=== PATIENT | female | born 1995 | race Caucasian/White ===

== ENCOUNTER 2018-08-26 20:17 | Day surgery (SDC) | payer SELFPAY ==
[2018-08-26 21:28] VITALS: BP 124/90; TEMP 98.9
[2018-08-26 21:29] LABS: Amnisure Test No Membranes Rupture (No Rupture)
[2018-08-26 21:30] LABS: Amnisure Internal Control QC ACCEPTABLE (ACCEPTABLE)
[2018-08-26 21:36] VITALS: BMI 22.1
--- NOTE | 2018-08-26 21:55 | PDOC.EVN ---
Event Note - Event Note Event Note: Faculty Note H&P Brief triage note Triage Time: 2200 Patient is a 22 yo at 39 weeks 2 days, having care in [place]. She states "leaking for weeks" but her MD has not "done any tests". Here for irregular CTX. She was here visiting the area for graduation. SSE: no evidence LOF. Thick yellow dsch PV. sent VP3 sent Will order sono for largest fluid pocket. Patient seen and agree with Dr Jay olvera.
[2018-08-26 22:17] LABS: Clarity Hazy (Clear)
[2018-08-26 22:18] LABS: Bilirubin Negative (Negative); Glucose, Urine (Dipstick) 100 mg/dL (Negative); Leukocyte Negative (Negative); Nitrite Negative (Negative); Protein, Urine (Dipstick) 30 mg/dL (Neg-Trace); Specific Gravity, Urine 1.025 (1.005-1.030); Urobilinogen 0.2 mg/dL (0.2-1.0); pH, Urine 6.5 (5.0-9.0)
[2018-08-26 22:19] LABS: Blood, Urine Moderate (Negative)
[2018-08-26 22:23] LABS: Bacteria/HPF Rare-Few HPF (None Seen); Hyaline Casts/LPF 0-3 HYALINE CAST LPF (0-3 Hyaline); Squamous Epithelial 0-3 HPF (0-3); WBC/HPF 0-3 HPF (0-3)
--- NOTE | 2018-08-26 22:25 | PDOC.FPROB ---
[facility]MR OB H&P: HPI - History of Present Illness Chief Complaint: Leaking Fluid History of Present Illness: 22 yo @ 39.2 weeks by LMP c/w U/S performed in April w/ c/c of leaking fluid for 3 weeks. Pt reports having leaking fluid. She states she is in premature labor. States having abdominal pain and pelvic pain. Reports pressure. Reports back pain and not being able to move her legs at times. Pt deneis any fever or chills. Pt denies any nausea or vomiting. Pt reports FM. Denies vaginal bleeding. Denies any urinary sx's. Pt reports being tx for UTI 3 weeks ago. Pt states she has been to her OB a few times for this same problem and he didn't do any testing. Primary Care Physician: JEYSON [facility] OB H&P: Current - Care : 2 Para: 1 Gestational age: 39.2 Due date: 08/31/2018 Dating Criteria: LMP - OB Labs Blood type: unknown RH: unknown Antibody Screen: unknown HIV: unknown RPR: unknown HepBsAg: unknown Quad screen: unknown Urine drug screen: not done Gonorrhea: unknown Chlamydia: unknown GBS: unknown [facility]MR OB H&P: History - Past Medical History PMH: None - OB History OB History: No significant OB history - TURPENTINE DISTILLER History TURPENTINE DISTILLER History: Denies - Surgical History Sx History: Eye surgery when a kid, [place] - Social History Social History: Denies alcohol use, tobacco use, or illicit drug use - Family History Family History: FH positive for DM, every type of cancer, and heart disease on her dads side FMR OB H&P: Medications - Current Home Medications: Medication Instructions Recorded Confirmed Type Clotrimazole [Clotrimazole-7] 1 appful VAG HS 7 Days #1 tube 08/26/18 Rx No122/Iron/Folic Acid 1 each PO DAILY 08/26/18 08/26/18 History [ Multi Tablet] Allergies/Adverse Reactions: Allergies Allergy/AdvReac Type Severity Reaction Status Date / Time aspirin AdvReac Mild Nausea Verified 08/26/18 20:53 FMR OB H&P: ROS - Review of Systems General: denies: fever/chills, weight/appetite/sleep changes Eyes: denies: vision changes ENT: denies: nasal congestion, rhinorrhea Respiratory: denies: cough, congestion, shortness of breath Gastrointestinal: reports: abdominal pain, cramping. denies: nausea, vomiting, diarrhea, constipation Genitourinary (Female): reports: vaginal discharge, vaginal pain, vaginal pressure. denies: incontinence, vaginal bleeding, contractions Musculoskeletal: reports: pain, decrease range of motion (in her lower extremities bilaterally) Neurologic: reports: weakness. denies: numbness, headache (In her lower extremities) Integumentary: denies: itching, rash Psychological: denies: depression, anxiety [facility]MR OB H&P: Vital Signs - Maternal Vital signs: Vital Signs - First Documented Temp Pulse Resp BP 98.9 F 88 18 124/90 08/26/18 20:46 08/26/18 20:46 08/26/18 20:46 08/26/18 20:46 - Heart Tones Baseline: 140 Variability: moderate Acceleration: present Deceleration: absent Category: category 1 Butternut contractions every: None seen FMR OB H&P: Physical Exam - Physical Exam General: NAD, awake, alert and oriented HEENT: normocephalic and atraumatic, PERRLA, conjunctiva clear Neck: supple, trachea midline, no LAD Heart: RRR, normal S1/S2, no murmurs/rubs/gallops, pulses present, no edema General: no respiratory distress, good air movement, no rales/rhonchi, no wheezing Abdomen: soft, gravid, fundus(cm), non-tender, bowel sound present, no masses Musculoskeletal: pulses present, no atrophy Deviation from normal: Patient reports not being able to move legs at time Neurological: sensation to pain,touch and proprioception grossly normal Skin: no rash, capillary refill <2 seconds Psychiatric: good judgement and insight, normal mood and affect - Pelvic Exam Deviation from normal: There is significant yellow/white discharge. Deviation from normal: Friable. Bleeding noted after VP3. SVE: 1/thick/posterior,high Presentation: vertex FMR OB H&P: Results - Labs Lab results: Laboratory Results - last 24 hr 08/26/18 21:14 Amnio Swab Test No Membranes Rupture FMR OB H&P: A/P - Problem List (1) Current Visit: Yes Status: Acute Qualifiers: Weeks of gestation: 39 weeks Qualified Code(s): Z3A.39 - 39 weeks gestation of Disposition: 22 yo @ 39.2 wks here with concern for ROM -Amnisure drawn. -Speculum exam showed closed cervix. No sign of pooling. Significant discharge and friable cervix noted. VP3 obtained. -U/A ordered. -Will get Limited U/S to assess largest pocket. -Will await results and tx as needed. Likely pain and fluid could be related to significant vaginal infection noted. FHT 140's. CAT 1 strip. No ctx noted. Low suspicion for labor at this time. FACULTY: Patient seen and care reviewed. Agree with plan. Discussion: Date/Time: 08/26/18 1773
--- NOTE | 2018-08-26 23:04 | PDOC.EVN ---
Event Note - Event Note Event Note: CX length normal; LP 5cm..ok for outpatient care. Late presentation...I recommended she follow up with her MD in 48 hrs or so
--- NOTE | 2018-08-26 23:13 | ULT ---
OB ultrasound Limited. HISTORY: Question of amniotic fluid leakage, evaluate IRWIN. Multiple longitudinal and transverse images of an intrauterine is obtained using multihertz curvilinear transducer. Real-time, color flow and spectral waveform Doppler analysis is used to evaluate the fetus. Images demonstrate a viable intrauterine with the fetus in a cephalic presentation. Placent a is toward the maternal right. Cardiac activity measures 139 bpm. Amniotic fluid index measures 5.2 cm. Biometrics: Biparietal diameter equals 94 mm equals 31 weeks 1 day Head circumference equals 310 mm equals 34 weeks 4 days Abdominal circumference equals 313 mm is 35 weeks 2 days Femur length 69 mm, 35 weeks 4 days Composite age equals 35 weeks 6 days with an estimated date of delivery of 09/24/2018. Amniotic fluid index measures 2708 g +/- 401 g. Impression Viable intrauterine . Estimated age is 35 weeks 6 days with estimated weight of a 2708 g and amniotic fluid index of 5.2 cm. Transcribed Date/Time: 08/26/2018 11:21 PM
== END 2018-08-26 23:10 | disposition home or self-care (01) ==
LOC: EEVIPCON 20:17 → L&D/OP 20:17
PROVIDERS: ATTEND Obstetrics & Gynecology
DX: O99.89 Other specified diseases and conditions complicating pregnancy, childbirth and the puerperium (principal); N89.8 Other specified noninflammatory disorders of vagina; Z3A.39 39 weeks gestation of pregnancy; Z88.6 Allergy status to analgesic agent
CPT/HCPCS: 36416; 76815; 81003; 81015; 84112; 87480; 87510; 87660; 99285